=== PATIENT | male | born 1960 | race Caucasian/White ===

== ENCOUNTER 2020-08-17 20:35 | Emergency (ER) | payer BC, SELFPAY ==
[2020-08-17 20:36] VITALS: BP 137/86; PULSE 77; RESP 16; TEMP 37.2; O2SAT 98; BMI 29.7
--- NOTE | 2020-08-17 21:04 | CT_ITS ---
STUDY: CT ABDOMEN AND PELVIS WITH CONTRAST REASON FOR EXAM: Male, 59 years old. WEIRD BOWEL MOVEMENT, FEVER, COUGH, GIRLFRIEND HAS COVID RADIATION DOSAGE (If Supplied By Facility): CTDIvol = ( 19.06 ) mGy, DLP = ( 1133.55 ) mGycm TECHNIQUE: Transaxial images were obtained from the dome of the diaphragm to the symphysis pubis without oral contrast. IV 100mL Isovue-370 was administered. Sagittal and coronal images were reconstructed. Individualized dose optimization techniques were used for this CT. COMPARISON: None. FINDINGS: Tiny bilateral pleural effusions are present. Normal liver. A tiny cyst is present at the far anterior medial aspect of the left lobe of the liver of no clinical significance. No follow-up imaging of the cyst is required. No ductal dilatation or liver masses. Normal gallbladder and extrahepatic biliary system. Normal spleen. Normal pancreas. Normal bilateral adrenal glands. Normal right kidney. Normal left kidney. Normal visualized stomach. Normal small intestine. Acute diverticulitis/inflammation of several diverticula of the mid sigmoid colon with mild to moderate pericolonic inflammatory stranding. One of the inflamed diverticula is distended with gas and is on the left side of the affected portion of the sigmoid colon but it is contained. No demonstrated perforation or intra-abdominal free air. There are multiple additional sigmoid colonic diverticula consistent with diverticulosis. The proximal and transverse colon are unremarkable. The appendix is visualized and appears normal. Normal abdominal aorta. Normal inferior vena cava. Normal retroperitoneum. Normal urinary bladder. Unremarkable prostate. There is a small umbilical hernia containing fat. Small fat-containing bilateral inguinal hernias are also present. Normal osseous structures. CT/Abdomen/Pelvis W IV Cont ONLY IMPRESSION: 1. Acute diverticulitis/inflammation of several diverticula of the mid sigmoid colon with mild to moderate pericolonic inflammatory stranding. 2. One of the inflamed diverticula is distended with gas and is on the left side of the affected portion of the sigmoid colon but it is contained. No demonstrated perforation or intra-abdominal free air. There are multiple additional sigmoid colonic diverticula consistent with diverticulosis. 3. Tiny bilateral pleural effusions. Electronically Signed: Mario Hernandez MD at 22:56 EDT , Service support ,
[2020-08-17] MEDS: Morphine 4 MG/ML Syringe IV (21:30)
[2020-08-17] MEDS: Ondansetron 4 MG/2 ML Vial IV (21:30)
[2020-08-17 21:38] LABS: Absolute Neutrophil Count 8.2 X10^3/uL (2.0-7.7); Basophil# 0.03 X10^3/uL; Basophil% 0.3 % (0-1); Eosinophil# 0.07 X10^3/uL; Eosinophils% 0.6 % (0-5); Hematocrit 43.1 % (40-54); Hemoglobin 14.2 g/dL (13.0-16.5); Lymphocyte % 19.6 % (19-41); Mean Corp Hgb Conc 32.9 g/dL (32-36); Mean Corpuscular Volume 88.1 fL (80-94); Mean Platelet Vol. 9.4 fl (6.2-12.0); Monocyte# 0.72 X10^3/uL; Monocyte% 6.4 % (0-10); NRBC Flagged by Analyzer 0 % (0-5); Neutrophil # 8.15 X10^3/uL (2.7-7.7); Neutrophil % 72.7 % (47-70); Platelet Count 184 K/mm3 (150-450); RBC Distribution Width CV 13.3 % (11.6-14.6); RBC Distribution Width SD 42.9 fl (35.1-43.9); Red Blood Count 4.89 M/mm3 (4.6-6.2); White Blood Count 11.2 K/mm3 (4.4-11.0)
[2020-08-17 22:01] LABS: ALB/GLOB Ratio 0.8 RATIO (0.9-2.4); AST(SGOT) 18 U/L (15-37); Alanine Aminotransfer ALT/SGPT 23 U/L (16-61); Albumin, Serum 3.1 g/dL (3.2-5.0); Alkaline Phosphatase 61 U/L (45-117); Anion Gap 7 (5-15); BUN 22 mg/dL (7-18); BUN/Creat Ratio 19.3 RATIO (10-20); Calcium,Total 8.5 mg/dL (8.5-10.1); Chloride 111 mmol/L (98-107); Creatinine, Serum 1.14 mg/dL (0.70-1.30); EST Glomerular Filtration Rate 70 mL/min (>60); Est Glom Filt Rate - Afr Amer 84 mL/min (>60); Estimated Creatinine Clearance 65.23 ml/min; Globulin 3.8 g/dL (2.2-4.2); Glucose 95 mg/dL (74-106); Lipase 284 U/L (73-393); Protein, Total 6.9 g/dL (6.4-8.2); Sodium Level 144 mmol/L (136-145)
--- NOTE | 2020-08-17 23:27 | ED.VIS.GEN ---
History of Present Illness Chief Complaint: Abd Pain Informant: Patient Narrative: 59-year-old male with no significant past medical history presents with abdominal pain. States it started after he was having a bowel movement this evening. States it is radiating from his lower abdomen into his back. States it is aching in nature. Intermittent. Denies any nausea, vomiting, hematochezia, melena. Denies any fever or chills. Denies any trauma. Past Medical History - Allergies and Home Meds Allergies/Adverse Reactions: Allergies Penicillins [PCN] Allergy (Verified 08/17/20 20:36) Rash Primary Care Physician: Care Physician,No Primary [Primary Care Provider] - Past Medical History: None Surgical History: - - traumatic injury to pelvis in 1998 Lives: Spouse/ Significant Other Smoking Status: Never smoker Alcohol: None Drugs: None Review of Systems General: Denies: Chills, Fever, Sweats Eyes: Denies: Visual changes - bilaterally, Diplopia ENT: Denies: Rhinorrhea, Sore throat Cardiovascular: Denies: Chest pain, Palpitations Respiratory: Denies: Dyspnea, Cough, Dyspnea on exertion Gastrointestinal: Reports: Abdominal pain. Denies: Nausea, Vomiting, Diarrhea, Melena, Hematochezia Genitourinary: Denies: Dysuria, Hematuria, Frequency Musculoskeletal: Denies: Back pain, Extremity Pain Skin: Denies: Rash, Wounds Neurological: Denies: Headache, Weakness, Numbness Physical Exam Vital Signs/Narrative: Vital Signs Temp Pulse Resp BP Pulse Ox 08/17/20 20:36 99.0 F 77 16 137/86 H 98 Inital Vital Signs reviewed: Yes General: Well nourished, Well developed, No Acute Distress Head: Normocephalic, Atraumatic Eyes: Perrl, EOMI ENT: Moist mucous membranes, No rhinorrhea Neck: Supple, Nontender Cardiovascular: Regular rate, Regular rhythm, No murmurs Respiratory: No distress, CTA bilaterally, Chest nontender Abdomen: Soft, Nondistended, Normal bowel sounds, - - TTP in the lower abdomen. Worse on left. No rebound. : - - Normal inspectin of scrotum and penis. Back: Nontender, Normal Inspection Extremities: Nontender, No edema Skin: Normal color, No rash Neurological: Alert, Oriented x3, Cranial nerves II-XII grossly intact, Normal Strength, Normal Sensation Psychological: Normal affect, Normal Mood Diagnostic/Tx/Re-eval Clinical Impression(s) from Imaging Studies Abdomen/Pelvis CT 08/17/20 21:04 IMPRESSION: 1. Acute diverticulitis/inflammation of several diverticula of the mid sigmoid colon with mild to moderate pericolonic inflammatory stranding. 2. One of the inflamed diverticula is distended with gas and is on the left side of the affected portion of the sigmoid colon but it is contained. No demonstrated perforation or intra-abdominal free air. There are multiple additional sigmoid colonic diverticula consistent with diverticulosis. 3. Tiny bilateral pleural effusions. Electronically Signed: Mario Hernandez MD at 22:56 EDT , Service support , Laboratory Data 08/17/20 08/17/20 21:25 21:25 WBC 11.2 H RBC 4.89 Hgb 14.2 Hct 43.1 MCV 88.1 MCH 29.0 MCHC 32.9 RDW Std Deviation 42.9 RDW Coeff of Dee 13.3 Plt Count 184 MPV 9.4 Immature Gran % (Auto) 0.400 Neut % (Auto) 72.7 H Lymph % (Auto) 19.6 [place] % (Auto) 6.4 Eos % (Auto) 0.6 Baso % (Auto) 0.3 Absolute Neuts (auto) 8.2 H Absolute Lymphs (auto) 2.20 Nucleated RBC % 0 Sodium 144 Potassium 4.0 Chloride 111 H Carbon Dioxide 26.0 Anion Gap 7 BUN 22 H Creatinine 1.14 Estim Creat Clear Calc 65.23 Est GFR (MDRD) Af Amer 84 Est GFR (MDRD) Non-Af 70 BUN/Creatinine Ratio 19.3 Glucose 95 Calcium 8.5 Total Bilirubin 0.60 AST 18 ALT 23 Alkaline Phosphatase 61 Total Protein 6.9 Albumin 3.1 L Globulin 3.8 Albumin/Globulin Ratio 0.8 L Lipase 284 - Medical Decision Making Patient in mild to moderate distress secondary to pain. Was given morphine, Zofran, [address] consistent with diverticulitis without perforation or abscess. Patient will be given Flagyl and Cipro in the emergency department his penicillin allergy. Patient's pain is better controlled. Will be given Zofran and antibiotics for home. Asked to return for any fever, chills, worsening pain. Patient agreeable and discharged home in stable condition. Impression: 1. Diverticulitis ED Disposition - Plan for ED Patient: Disposition: Home or Assisted Living Instructions: ED Diverticulitis Prescriptions: Ciprofloxacin [Cipro] 500 mg PO BID #14 tab Prescription Printed metroNIDAZOLE [Flagyl] 500 mg PO Q8H #21 tab Prescription Printed Ondansetron [Zofran Odt] 4 mg PO Q8H PRN PRN #10 tab PRN Reason: Nausea Prescription Printed Referrals: Care Physician,No Primary [Primary Care Provider] -
[2020-08-17] MEDS: Ciprofloxacin 500 MG Tablet PO (23:46)
[2020-08-17] MEDS: HYDROmorphone 0.5 MG/0.5 ML SYRINGE IV (23:46)
[2020-08-17] MEDS: metroNIDAZOLE 500 MG Tablet PO (23:46)
[2020-08-17 23:48] VITALS: BP 120/77; PULSE 80; RESP 16; O2SAT 98
[2020-08-18 00:01] VITALS: BP 120/77; PULSE 80; RESP 16; O2SAT 98
== END 2020-08-18 00:12 | disposition home or self-care (01) ==
PROVIDERS: Emergency Provider Emergency Medicine
DX: K57.92 Diverticulitis of intestine, part unspecified, without perforation or abscess without bleeding (principal)
CPT/HCPCS: 74177; 80053; 83690; 85025; 96374; 96375; 99281; 99285; Q9967; A4216; J2405